=== PATIENT | female | born 1990 | race Caucasian/White ===

== ENCOUNTER → 2018-03-11 | Outpatient (CLI) | payer OTHER ==
[~2018-03-11] MED LIST: IOPAMIDOL (ISOVUE 370) 100 ML BTL IV ONE
== END ==
LOC: FIMAGING 03-07 05:58
PROVIDERS: ATTEND Midwife
DX: Z31.69 Encounter for other general counseling and advice on procreation (principal); N97.9 Female infertility, unspecified
CPT/HCPCS: Q9967